=== PATIENT | male | born 1950 | race Caucasian/White ===

== ENCOUNTER 2017-04-25 08:34 | Outpatient (CLI) | payer MEDICARE ==
--- NOTE | 2017-04-25 11:19 | MRI ---
LUMBAR SPINE MRI WITHOUT IV CONTRAST: Date: 04/25/17 HISTORY: 67-year-old male with history of low back pain and bilateral radiculopathy. FINDINGS: Multiplanar, multisequence MRI examination of the lumbar spine was performed. There is very severe ge neralized disc desiccation changes and ligament and facet hypertrophic changes with extensive hypertr ophic disc osteophytosis and facet arthrosis. At T11-T12, evaluated only on sagittal sequences, there is diffuse disc osteophytosis with some facet arthrosis resulting in severe central spinal canal stenosis with some central cord compression, both dorsally and ventrally. There is also bilateral foraminal stenosis at this level. There are some mix ed, including some Type I end plate changes at this level anteriorly. At T12-L1, there is some moderate central canal stenosis and right foraminal stenosis. At L1-L2, there is mild to moderate central canal stenosis without significant foraminal stenosis. At L2-L3, there is severe disc bulging with moderate generalized central canal stenosis and moderate to severe bilateral foraminal stenosis. At L3-L4, there is very severe central spinal canal stenosis, lateral recess stenosis, and bilateral foraminal stenosis, worse on the left side. At L4-L5, there is very severe facet arthrosis with fluid within both facet joints and a right-sided posterior synovial cyst extending into the spinal canal, with overall severe central spinal canal pati nosis, bilateral recess stenosis, and bilateral foraminal stenosis. At L5-S1, there is severe generalized disc osteophytosis with left-sided lateral recess stenosis and severe bilateral foraminal stenosis. IMPRESSION: Very severe multilevel disc osteophytosis and facet arthrosis with variable severity up to very sever e central canal, lateral recess, and foraminal stenosis at multiple levels, most marked at L4-L5 and L3-L4, and T11-T12. Other findings as above. POS: ENRIQUE
== END 2017-04-25 08:35 | disposition home or self-care (01) ==
LOC: TBSIIMAG 08:34
PROVIDERS: ATTEND Family Medicine
DX: M54.16 Radiculopathy, lumbar region (principal); M25.78 Osteophyte, vertebrae; M48.061 Spinal stenosis, lumbar region without neurogenic claudication; M99.83 Other biomechanical lesions of lumbar region; M47.896 Other spondylosis, lumbar region
CPT/HCPCS: 72148

== ENCOUNTER 2017-05-30 07:42 | Outpatient (CLI) | payer MEDICARE ==
--- NOTE | 2017-05-30 09:57 | MRI ---
MRI THORACIC SPINE WITHOUT CONTRAST: Date: 05/30/17 HISTORY: Thoracic spine pain. Low back pain. Pain radiates down both lower extremities, for a few months. COMPARISON: None. TECHNIQUE: MRI thoracic spine is performed without intravenous Gadolinium administration. Multisequential, multi planar imaging is performed. FINDINGS: Intrinsic T1 and T2 hyperintensity at the T6 vertebral body level compatible with vertebral body nicola ngioma. No significant STIR hyperintensity to suggest vertebral body edema or ligamentous injury. No evidence of fracture. Overall, there is appropriate T1 marrow signal intensity of the thoracic verteb ra. Visualized mediastinal structures, lung parenchyma, and solid organs are unremarkable. The thoracic cord has an overall normal size. No cord expansion. Conus medullaris terminates beyond t he upper aspect of L1. There appears to be mass effect with at least mild to moderate central canal stenosis in the lower ce rvical spine, presumed to be at the C6-C7 level. Evaluation is incomplete on this examination. T6-T7: Small central disc bulge with mild central canal stenosis and deformity of the ventral cord, without T2 hyperintensity of the cord. T8-T9: Central/right paracentral disc bulge with deformity of the right aspect of the cord, without T2 hyper intensity of the cord. Mild to moderate central canal stenosis. T10-T11: Mild posterior element hypertrophy with resultant mild central canal stenosis. T11-T12: Generalized disc bulge and posterior element hypertrophy results in moderate central canal stenosis. T12-L1: Generalized disc bulge and posterior element hypertrophy results in mild central canal stenosis. IMPRESSION: 1. Degenerative changes of the thoracic spine as above. Greatest degree of central canal stenosis at T11-T12 level where there is moderate central canal stenosis. 2. Degenerative changes in the lower cervical spine, incompletely evaluated. POS: ENRIQUE
== END 2017-05-30 07:43 | disposition home or self-care (01) ==
LOC: TBSIIMAG 07:42
PROVIDERS: ATTEND Neurological Surgery
DX: M54.6 Pain in thoracic spine (principal); M47.894 Other spondylosis, thoracic region; M47.892 Other spondylosis, cervical region; M48.04 Spinal stenosis, thoracic region
CPT/HCPCS: 72146

== ENCOUNTER 2017-06-10 10:59 | Outpatient (CLI) | payer MEDICARE ==
[2017-06-10 14:13] LABS: Anion Gap 19 mmol/L (10-20); BUN (Urea Nitrogen) 25 mg/dL (8.4-25.7); Calc. Creatinine Clearance 0 mL/min (70-130); Calcium 10.3 mg/dL (7.8-10.44); Carbon Dioxide 23 mmol/L (23-31); Chloride 97 mmol/L (98-107); Estimated GFR-MDRD 37; Glucose 319 mg/dL (80-115); Potassium 4.3 mmol/L (3.5-5.1); Sodium 135 mmol/L (136-145)
--- NOTE | 2017-06-11 07:25 | EKG ---
Test Reason : Blood Pressure : / mmHG Vent. Rate : 070 BPM Atrial Rate : 070 BPM P-R Int : 200 ms QRS Dur : 150 ms QT Int : 418 ms P-R-T Axes : 012 -45 006 degrees QTc Int : 451 ms Normal sinus rhythm Left axis deviation Right bundle branch block Inferior infarct , age undetermined Abnormal ECG When compared with ECG of 19-SEP-2004 13:58, Right bundle branch block is now Present Inferior infarct is now Present Confirmed by DR. Karen MURO ([id number]) on 06/11/2017 7:24:43 AM Referred By: ORTEGA Confirmed By:DR. Karen MURO
== END 2017-06-10 11:00 | disposition home or self-care (01) ==
LOC: LABBT 10:59
PROVIDERS: ATTEND Neurological Surgery
DX: Z01.818 Encounter for other preprocedural examination (principal); M48.061 Spinal stenosis, lumbar region without neurogenic claudication
CPT/HCPCS: 80048; 93005; 93010

== ENCOUNTER 2017-06-17 06:45 | Day surgery (SDC) | payer MEDICARE ==
[2017-06-10 11:14] VITALS: BMI 41.7
--- NOTE | 2017-06-16 22:18 | HP ---
HISTORY OF PRESENT ILLNESS: Mr. Duque is a 67-year-old man presenting for evaluation of lumbar rad iculopathy as well as elements of neurogenic claudication. He has an MRI scan that reveals severe jessica mbar stenosis at L3-L4 as well as L4-L5 with associated synovial cyst. He has attempted to treat thi s conservatively with [id number] medications and some home exercises, none of which have really yielded him a great deal of relief. PAST MEDICAL HISTORY: Significant for hypertension, diabetes. CURRENT MEDICATIONS: Amlodipine, Bystolic, Janumet, and glipizide. ALLERGIES: No known drug allergies. PAST SURGICAL HISTORY: None specified. ASSESSMENT: Lumbar spinal stenosis. PLAN: Dr. Brandt met with the patient, reviewed imaging and advocated for an L3 through L5 decompress ion. He explained to the patient the risks, benefits, and alternatives to the procedure. The patien t expressed understanding and would like to move forward with surgery as discussed. I do believe the patient is mentally competent and capable of making medical decisions for himself and we will move f orward with surgery as planned. This is Humberto Javed PA-C dictating for Dr. Brandt.
[2017-06-17] MEDS ORDERED: Bupivacaine HCl 0.5%/Epinephrine 1:200,000/PF 30 ml Vial ONE (08:05)
[2017-06-17] MEDS ORDERED: Thrombin 5000 UNITS/5 ML VIAL ONE (08:05)
[2017-06-17] MEDS ORDERED: CEFAZOLIN/Water 2 GM/20 ML SYRINGE ONE ×2 (08:25→12:58)
[2017-06-17] MEDS ORDERED: Fentanyl 100 MCG/2 ML VIAL ONE ×2 (09:50→10:45)
[2017-06-17] MEDS ORDERED: Ondansetron HCl/PF 4 MG/2 ML Vial ONE ×2 (11:14→12:01)
[2017-06-17] MEDS ORDERED: HYDROmorphone 0.5 MG/0.5 ML SYRINGE ONE ×2 (11:19→11:21)
[2017-06-17] MEDS ORDERED: Morphine 4 MG/ML VIAL ONE (11:50)
[2017-06-17] MEDS ORDERED: PROPOFOL 200 MG/20 ML VIAL ONE (12:01)
[2017-06-17] MEDS ORDERED: Lidocaine 1% PF 5 ML VIAL ONE (12:01)
[2017-06-17] MEDS ORDERED: Glycopyrrolate 0.2 MG/ML 5 ML SYRINGE ONE (12:01)
[2017-06-17] MEDS ORDERED: Dexamethasone 20 MG/5 ML VIAL ONE (12:01)
--- NOTE | 2017-06-17 12:19 | OP ---
DATE OF PROCEDURE: 06/17/2017 SURGEON: Remi Brandt M.D. MEDICAL CONCIERGE: Humberto Javed PA-C INDICATION: Pain. DIAGNOSIS: Lumbar stenosis with neurogenic claudication. PROCEDURE PERFORMED: L3 through L5 lumbar decompression. ANESTHESIA: General. TECHNIQUE: The patient was brought into the operating room and placed under general anesthesia. He was flipped from a supine to a prone position on the operating room table. A linear incision was eddy nned spanning L3 to L5. After prepping and draping and after an appropriate operative pause, the inc ision was created. The soft tissues were swept away from midline. Self-retaining retractors were pl aced in the wound for optimal exposure. After confirming the appropriate level with a C-arm fluorosc opy, Adson rongeurs as well as 2, 3 and 4 mm Kerrisons as well as a high-speed cutting drill bit was used to perform a laminectomy which extended through all of L4, the inferior half of L3 and the super ior half of L5. Laminectomies were extended laterally to encompass the medial aspect of the facet maría elena ints. At the L4-L5 on the right, there was a synovial cyst present which was removed. In the end, t he central canal and lateral recesses were well decompressed. The wound was then irrigated. Hemosta sis was maintained throughout. The wound was then closed in anatomic layers and a pressure dressing was applied. There were no known procedural complications.
[2017-06-17] MEDS ORDERED: Ondansetron ODT 4 MG TAB ONE (13:27)
== END 2017-06-17 13:40 | disposition home or self-care (01) ==
LOC: SDC 06:45
PROVIDERS: ATTEND Neurological Surgery
PROC: 01NB0ZZ Release Lumbar Nerve, Open Approach (ICD-10-PCS; principal; 2017-06-17)
DX: M48.062 Spinal stenosis, lumbar region with neurogenic claudication (principal); I10 Essential (primary) hypertension; E11.9 Type 2 diabetes mellitus without complications
CPT/HCPCS: 76001; 96374; J0670; J1100; J1170; J2001; J2270; J2405; J2704; J3010; Q0162

== ENCOUNTER 2018-03-03 12:48 | Outpatient (CLI) | payer MEDICARE ==
--- NOTE | 2018-03-03 16:16 | RAD ---
CHEST TWO VIEW SERIES: INDICATIONS: Dyspnea. FINDINGS: The cardiac silhouette is mildly enlarged. There is mild prominence of the central pulmonary vascula ture. No effusion or pneumothorax. There is vascular calcification and osseous degenerative change. IMPRESSION: 1. No focal consolidation. 2. Mild prominence of the cardiac silhouette and pulmonary vasculature. 3. Correlate for fluid status. POS: [facility]
== END 2018-03-03 12:49 | disposition home or self-care (01) ==
LOC: RAD 12:48
PROVIDERS: ATTEND Internal Medicine Critical Care Medicine
DX: R06.00 Dyspnea, unspecified (principal)
CPT/HCPCS: 71046

== ENCOUNTER 2018-04-29 12:16 | Outpatient (CLI) | payer MEDICARE ==
--- NOTE | 2018-05-01 10:41 | PFT ---
PATIENT HISTORY: HEIGHT: 74 IN WEIGHT: 330 SMOKER: NEVER HOW LONG: NA PACKS PER DAY PRODUCTIVE COUGH: LUNG DISEASE: PHYSICIAN INTERPRETATION PFT data: FEV1 3.70 L 110% predicted, FVC 5.01 L 114% predicted. Residual volume and Total lung capacity are normal. DLCO was 36.99 which is 128% predicted which is likely an erroneous reading. The MVV is also normal. IMPRESSION: This is a normal study. Shank Inspector: JOSÉ MIGUEL Trench Pipe Layer Helper: JOSÉ MIGUEL MATTHEWS
== END 2018-04-29 12:17 | disposition home or self-care (01) ==
LOC: CP 12:16
PROVIDERS: ATTEND Internal Medicine Critical Care Medicine
DX: R06.00 Dyspnea, unspecified (principal)
CPT/HCPCS: 94060; 94727; 94729

== ENCOUNTER 2019-09-05 18:16 | Inpatient (IN) | payer MEDICARE, OTHER ==
[2019-09-05] MEDS ORDERED: Vancomycin 1 GM/200 ML BAG ONE (18:34)
[2019-09-05 19:06] LABS: #Eosinphils 0.1 thou/uL (0.0-0.7); #Lymphocytes 2.2 thou/uL (1.20-3.40); #Neutrophils 7.5 thou/uL (1.40-6.50); %Basophils 0.2 % (0.0-1.0); %Eosinophils 0.7 % (0.0-10.0); %Lymphocytes 20.2 % (21.0-51.0); %Monocytes 9.1 % (0.0-10.0); %Neutrophils 69.8 % (42.0-75.0); Hemoglobin 15.2 g/dL (14.0-18.0); Mean Corpuscular HGB CONC 31.2 g/dL (32.0-36.0); Mean Corpuscular Hemoglobin 28.7 pg (27.0-31.0); Mean Corpuscular Volume 92.2 fL (78.0-98.0); Mean Platelet Volume 9.1 fL (7.4-10.4); Platelet Count 209 thou/uL (130-400); RBC Distribution Width 11.8 % (11.5-14.5); Red Blood Cell (RBC) Count 5.28 mill/uL (4.70-6.10); White Blood Cell (WBC) Count 10.7 thou/uL (4.8-10.8)
[2019-09-05 19:26] LABS: ALT (SGPT) 17 U/L (8-55); AST (SGOT) 16 U/L (5-34); Alkaline Phosphatase 127 U/L (40-110); Anion Gap 19 mmol/L (10-20); BUN (Urea Nitrogen) 36 mg/dL (8.4-25.7); Bilirubin, Total 0.6 mg/dL (0.2-1.2); Calc. Creatinine Clearance 0 mL/min (70-130); Calcium 9.5 mg/dL (7.8-10.44); Carbon Dioxide 24 mmol/L (23-31); Chloride 93 mmol/L (98-107); Estimated GFR-MDRD 33; Globulin 3.6 g/dL (2.4-3.5); Glucose 377 mg/dL (80-115); Potassium 4.5 mmol/L (3.5-5.1); Protein, Total 7.6 g/dL (5.8-8.1); Sodium 131 mmol/L (136-145)
--- NOTE | 2019-09-05 19:35 | RAD ---
RIGHT TOES THREE VIEWS: 09/05/19 HISTORY: Trauma. Examination is centered over the second and third toes. There is some deformity to the tuft of the di stal phalanx of the third toe. There is soft tissue swelling. IMPRESSION: Tuft fracture third toe. POS: KLAUDIA
[2019-09-05] MEDS ORDERED: Guaifenesin DM 100-10/5 ML UDCUP PO PRN (19:54)
[2019-09-05] MEDS ORDERED: Ondansetron PF 4 MG/2 ML Vial IVP PRN (19:54)
[2019-09-05] MEDS ORDERED: Acetaminophen 650 MG Suppository PR PRN (19:54)
[2019-09-05] MEDS ORDERED: Ondansetron ODT 4 MG TAB PO PRN (19:54)
[2019-09-05] MEDS ORDERED: Acetaminophen 325 MG TAB PO PRN (19:54)
[2019-09-05] MEDS ORDERED: Calcium Carbonate 500 MG ChewTAB PO PRN (19:54)
[2019-09-05] MEDS ORDERED: HYDROcodone/Acetaminophen 5/325 mg Tablet PO PRN ×2 (19:54)
--- NOTE | 2019-09-05 20:17 | PDOC.HHP ---
Hospitalist HPI - History of Present Illness History of Present Illness: Case of an 69 y/o with pmhx of smoker, DM htn and hypercholesterolemia who comes to hospital due to infected third toe. patient refers he was on his usual state of health until almost a week ago when he kicked something. his toe began started getting swollen and red. he took some abx he had on his home amoxicillin 500, but toe continued to get worse, suppurating for which he came to seek medical assistance. patient denies any fever chills nausea and vomiting. patient has diabetic neuropathy and does not feel any pain Hospitalist ROS - Review of Systems All other systems reviewed; all pertinent +/- noted in HPI/Subj Hospitalist History - Past Surgical History Past Surgical History: reports: Total Knee Replacement - Family History Family History: reports: cerebrovascular accident, diabetes mellitus - Social History Smoking Status: Current every day smoker - Exam General Appearance: NAD, awake alert Eye: PERRL, anicteric sclera ENT: normocephalic atraumatic, no oropharyngeal lesions Neck: supple, symmetric, no JVD Heart: RRR, no murmur, no gallops Respiratory: CTAB, no wheezes, no rales Gastrointestinal: soft, non-tender, non-distended Extremities - other findings: R 3rd toe with erythema swollen suppurating, black eschar Skin: normal turgor, no lesions Neurological: cranial nerve grossly intact, normal sensation to touch Musculoskeletal: normal tone, normal strength, no muscle wasting Psychiatric: normal affect, normal behavior, A&O x 3 Hospitalist Results - Labs Result Diagrams: 09/05/19 18:47 09/05/19 18:47 Lab results: WBC 10.7 thou/uL (4.8-10.8) 09/05/19 18:47 Hgb 15.2 g/dL (14.0-18.0) 09/05/19 18:47 Hct 48.7 % (42.0-52.0) 09/05/19 18:47 MCV 92.2 fL (78.0-98.0) 09/05/19 18:47 Plt Count 209 thou/uL (130-400) 09/05/19 18:47 Neutrophils % 69.8 % (42.0-75.0) 09/05/19 18:47 ESR Westergren 63 mm/hr (Less than 20) 09/05/19 18:47 Sodium 131 mmol/L (136-145) L 09/05/19 18:47 Potassium 4.5 mmol/L (3.5-5.1) 09/05/19 18:47 Chloride 93 mmol/L (98-107) L 09/05/19 18:47 Carbon Dioxide 24 mmol/L (23-31) 09/05/19 18:47 BUN 36 mg/dL (8.4-25.7) H 09/05/19 18:47 Creatinine 2.01 mg/dL (0.7-1.3) H 09/05/19 18:47 Glucose 377 mg/dL (80-115) H 09/05/19 18:47 Lactic Acid 3.6 mmol/L (0.5-2.2) H 09/05/19 18:47 Calcium 9.5 mg/dL (7.8-10.44) 09/05/19 18:47 Total Bilirubin 0.6 mg/dL (0.2-1.2) 09/05/19 18:47 AST 16 U/L (5-34) 09/05/19 18:47 ALT 17 U/L (8-55) 09/05/19 18:47 Alkaline Phosphatase 127 U/L (40-110) H 09/05/19 18:47 C-Reactive Protein 5.18 mg/dL (= or < 0.5) H 09/05/19 18:47 Serum Total Protein 7.6 g/dL (5.8-8.1) 09/05/19 18:47 Albumin 4.0 g/dL (3.4-4.8) 09/05/19 18:47 - Radiology Interpretation Other Additional Comment: xr with broken toe, tissues swelling Hospitalist H&P A/P - Problem (1) Wet gangrene Code(s): I96 - GANGRENE, NOT ELSEWHERE CLASSIFIED Status: Acute (2) Diabetes Code(s): E11.9 - TYPE 2 DIABETES MELLITUS WITHOUT COMPLICATIONS Status: Acute (3) Hypertension Code(s): I10 - ESSENTIAL (PRIMARY) HYPERTENSION Status: Acute (4) Obese Code(s): E66.9 - OBESITY, UNSPECIFIED Status: Acute (5) Hypercholesterolemia Code(s): E78.00 - PURE HYPERCHOLESTEROLEMIA, UNSPECIFIED Status: Acute (6) LORRAINE (acute kidney injury) Code(s): N17.9 - ACUTE KIDNEY FAILURE, UNSPECIFIED Status: Acute - Plan Plan: 69y/o male with [place] pmhx who comes [facility] due to R 3rd toe with wet gangrene wet gangrene of R 3rd toe - xr concerning for OM - elevated crp - on vancomycin and cefepimen - LA at 3.6 f/u in 3 hrs - sepsis bundles started - surgery evaluation hyponatremia - likely hypo osmolar hypovolemic - starting ivfs - f/u bmp acute over chronic kidney injury - elevation of over .3 from previous labs - starting IVFs - f/u u/o and renal function dm - holding oral medication - acc and ss - long acting insulin - adjust as necessary htn - holding for now, restart w LA is normal
[2019-09-05] MEDS ORDERED: Piperacillin/Tazobactam 4.5 GM VIAL ONE (20:55)
[2019-09-05] MEDS ORDERED: Dextrose 50% Abboject 50 ML SYRINGE SLOW IVP PRN (21:06)
[2019-09-05] MEDS ORDERED: Dextrose 5% in Water 1,000 ML IV PRN (21:06)
[2019-09-05] MEDS: Cefepime 2 GM in Sodium Chloride 0.9% 100 ML IVPB SCH (22:13)
[2019-09-05] MEDS: Sodium Chloride 0.9% 1,000 ML IV SCH (22:13)
[2019-09-05 22:22] LABS: Lactic Acid 1.9 mmol/L (0.5-2.2)
[2019-09-05] MEDS ORDERED: Insulin Glargine 10 UNITS in Pre-Filled Syringe 1 EACH SC SCH (23:45)
[2019-09-06 00:01] VITALS: BMI 39.6
[2019-09-06] MEDS: Vancomycin 1 GM in Premix Bag 1 BAG IVPB SCH ×2 (03:50→18:30)
[2019-09-06] MEDS: HumaLOG 300 UNITS/3 ML VIAL SC PRN ×4 (05:23→22:51)
[2019-09-06] MEDS: Sodium Chloride 0.9% 1,000 ML IV SCH ×3 (05:24→15:05)
[2019-09-06 06:42] LABS: #Eosinphils 0.1 thou/uL (0.0-0.7); #Lymphocytes 1.5 thou/uL (1.20-3.40); #Monocytes 0.8 thou/uL (0.11-0.59); #Neutrophils 5.8 thou/uL (1.40-6.50); %Basophils 0.2 % (0.0-1.0); %Eosinophils 0.9 % (0.0-10.0); %Lymphocytes 18.2 % (21.0-51.0); %Monocytes 9.8 % (0.0-10.0); %Neutrophils 70.9 % (42.0-75.0); Mean Corpuscular HGB CONC 33.9 g/dL (32.0-36.0); Mean Corpuscular Hemoglobin 31.4 pg (27.0-31.0); Mean Corpuscular Volume 92.9 fL (78.0-98.0); Mean Platelet Volume 7.4 fL (7.4-10.4); Platelet Count 207 thou/uL (130-400); RBC Distribution Width 11.9 % (11.5-14.5); Red Blood Cell (RBC) Count 4.46 mill/uL (4.70-6.10); White Blood Cell (WBC) Count 8.1 thou/uL (4.8-10.8)
[2019-09-06 07:04] LABS: ALT (SGPT) 15 U/L (8-55); AST (SGOT) 13 U/L (5-34); Albumin 3.5 g/dL (3.4-4.8); Alkaline Phosphatase 103 U/L (40-110); Anion Gap 12 mmol/L (10-20); BUN (Urea Nitrogen) 24 mg/dL (8.4-25.7); Bilirubin, Total 0.5 mg/dL (0.2-1.2); Calc. Creatinine Clearance 74 mL/min (70-130); Calcium 9.2 mg/dL (7.8-10.44); Carbon Dioxide 26 mmol/L (23-31); Chloride 100 mmol/L (98-107); Estimated GFR-MDRD 36; Globulin 3.1 g/dL (2.4-3.5); Glucose 352 mg/dL (80-115); Potassium 4.7 mmol/L (3.5-5.1); Protein, Total 6.6 g/dL (5.8-8.1); Sodium 133 mmol/L (136-145)
[2019-09-06] MEDS: Enoxaparin Sodium 30 MG/0.3 ML SYRINGE SC SCH (08:56)
[2019-09-06] MEDS: Cefepime 2 GM in Sodium Chloride 0.9% 100 ML IVPB SCH ×2 (08:57→22:45)
[2019-09-06] MEDS ORDERED: Prevnar 13-Val Conj/PF 0.5 ML SYRINGE IM ONE (09:00)
[2019-09-06] MEDS ORDERED: PROPOFOL 200 MG/20 ML VIAL ONE (10:04)
[2019-09-06] MEDS ORDERED: Ondansetron PF 4 MG/2 ML Vial ONE (10:04)
[2019-09-06] MEDS ORDERED: Midazolam HCl 2 mg/2 ml Vial ONE ×2 (12:14→16:55)
[2019-09-06] MEDS ORDERED: Fentanyl 100 MCG/2 ML VIAL ONE ×2 (12:14→16:55)
--- NOTE | 2019-09-06 12:15 | PDOC.CONS ---
- Consultation CHIEF COMPLAINT: Right third toe pain HISTORY OF PRESENT ILLNESS: 69-year-old diabetic male presents with right third toe pain. Patient reports that he had kicked something approximately 1 week ago and injured his toe. He endorses paresthesias in his toes due to diabetes. Over the time course, he has increased swelling with erythema; now with purulent discharge. He was originally managed outpatient with antibiotics for 5 days, but this failed to improve his condition. He denies fever, chills, nausea, or vomiting. REVIEW OF SYSTEMS: General: Denies recent weight changes, fever, or chills. Eyes: Denies visual changes, pain, or irritation ENT: Denies changes in hearing, nasal discharge, or sore throat Cardiovascular: Denies chest pain, palpitations, shortness of breath, or edema. Respiratory: Denies cough, shortness of breath, or wheezing Gastrointestinal: Denies abdominal pain, nausea, or vomiting. Genitourinary: Denies frequent urination or dysuria Musculoskeletal: Positive per HPI Integumentary: Denies abnormal rashes, sores, or skin lesions Neurological: Denies numbness, tingling, or weakness. Psychiatric: Denies new onset anxiety or depression Endocrine: Denies temperature intolerances, polyuria, or excessive thirst Hematologic: Denies abnormal bruising or bleeding PAST MEDICAL HISTORY: Diabetes mellitus Hyperlipidemia Hypertension PAST SURGICAL HISTORY: Left knee replacement Back surgery FAMILY HISTORY: CVA Diabetes SOCIAL HISTORY Never smoker, denies illicit drug use, endorses occasional alcohol consumption. PHYSICAL EXAM: Vital Signs: HR 75 BP 137/69 T 97.6 RR 20 SpO2 [ ] General: Alert and oriented, no acute distress ENT: Sclera anicteric, pupils equal and reactive, mucous membranes moist Neck: No jugular venous distention, trachea midline Cardiovascular: Regular rate and rhythm Pulmonary: Clear to auscultation Abdominal: Soft, nondistended, nontender Genitourinary: Normal anatomy Rectal: Deferred Integument: No abnormal rashes or lesions Musculoskeletal: No gross deformities or edema, normal range of motion. Well- healed surgical incision left knee. Erythema, swelling, and purulent discharge from the tip of the right third toe with mild cellulitis extending to the metacarpophalangeal joint. LABORATORY: Laboratory analysis reviewed. Demonstrates a white blood cell count of 8.1 and a creatinine of 1.9 (reported to be chronically elevated by patient) IMAGING: X-ray right foot demonstrates tuft fracture of third toe ASSESSMENT: 69-year-old male with wet gangrene of the right third toe secondary to traumatic injury and diabetes mellitus. PLAN: Plan for right third toe amputation later today. The relative risks and benefits of this procedure were discussed in detail with the patient, specifically addressing the risk of wound complications and the need for additional procedures. Informed consent was obtained. Patient may be discharged home from a surgical standpoint later, if deemed appropriate by primary service.
[2019-09-06 12:25] LABS: SARS-CoV-2 MS2 Positive; SARS-CoV-2 N Gene Negative; SARS-CoV-2 S Gene Negative; SARS-CoV-2 by NAA Not Detected (NotDetected); SARS-CoV-2 orf1ab Negative
--- NOTE | 2019-09-06 12:25 | PDOC.HOSPP ---
- Subjective Encounter Date: 09/06/19 Encounter Time: 12:23 Subjective: surgery today to amputate R 3rd and 4th toe - Objective Vital Signs & Weight: Vital Signs (12 hours) Temp Pulse Resp BP Pulse Ox 09/06/19 11:00 97.5 F L 75 20 145/82 H 96 09/06/19 07:25 97.6 F 75 20 137/69 97 09/06/19 03:45 97.1 F L 68 18 140/66 95 Weight Weight 308 lb 8 oz I&O: 09/05/19 09/06/19 09/07/19 06:59 06:59 06:59 Intake Total 900 Balance 900 Result Diagrams: 09/06/19 06:19 09/06/19 06:19 Additional Labs: Accuchecks 09/06/19 09/06/19 09/05/19 05:04 00:12 22:27 POC Glucose 299 H 341 H 286 H Hospitalist ROS - Medication Medications: Active Medications Generic Name Dose Route Start Last Admin Trade Name Freq PRN Reason Stop Dose Admin Enoxaparin Sodium 30 mg 09/06/19 09:00 09/06/19 08:56 Lovenox SC 30 mg 0900 DIANELYS Administration Cefepime HCl 2 gm/ Sodium 100 mls @ 200 mls/hr 09/05/19 21:00 09/06/19 08:57 Chloride IVPB 100 mls Q12HR DIANELYS Administration Sodium Chloride 1,000 mls @ 100 mls/hr 09/05/19 20:00 09/06/19 12:18 Normal Saline 0.9% IV 1,000 mls .Q10H DIANELYS Administration Vancomycin HCl 1 gm/ Device 200 mls @ 200 mls/hr 09/06/19 04:00 09/06/19 03: 50 IVPB 200 mls 0400,1600 DIANELYS Administration Insulin Human Lispro 0 units 09/05/19 21:06 09/06/19 05:23 Humalog SC 6 unit .MODERATE SLIDING SC PRN Administration Moderate Correctional Scale Sodium Chloride 10 ml 09/05/19 21:00 09/06/19 08:57 Flush - Normal Saline IVF 10 ml Q12HR DIANELYS Administration - Exam General Appearance: awake alert Neck: no JVD Heart: RRR, no murmur Respiratory: CTAB Gastrointestinal: soft, non-tender, normal bowel sounds Extremities - other findings: gangrene R 3rd/4th toes Hosp A/P (1) Gangrene associated with type 2 diabetes mellitus Code(s): E11.52 - TYPE 2 DIABETES W DIABETIC PERIPHERAL ANGIOPATHY W GANGRENE Status: Acute (2) LORRAINE (acute kidney injury) Code(s): N17.9 - ACUTE KIDNEY FAILURE, UNSPECIFIED Status: Acute (3) Diabetes Code(s): E11.9 - TYPE 2 DIABETES MELLITUS WITHOUT COMPLICATIONS Status: Acute Qualifiers: Diabetes mellitus type: type 2 Diabetes mellitus long-term insulin use: without tank terminal gauger use Diabetes mellitus complication status: with kidney complications Diabetes mellitus complication detail: with other kidney complication Qualified Code(s): E11.29 - Type 2 diabetes mellitus with other diabetic kidney complication (4) Hypercholesterolemia Code(s): E78.00 - PURE HYPERCHOLESTEROLEMIA, UNSPECIFIED Status: Chronic (5) Hypertension Code(s): I10 - ESSENTIAL (PRIMARY) HYPERTENSION Status: Chronic Qualifiers: Hypertension type: essential hypertension Qualified Code(s): I10 - Essential (primary) hypertension - Plan surgery today serial BMP iv fluids selected home meds- hold ARB/metformin secondary to acute renal failure accu/ss/ etc
[2019-09-06] MEDS ORDERED: Ondansetron HCl/PF 4 MG/2 ML Vial IVP PRN ×2 (12:53→16:55)
[2019-09-06] MEDS ORDERED: Vancomycin 1 GM/200 ML BAG ONE (16:13)
[2019-09-06] MEDS ORDERED: Promethazine HCl 25 MG/ML VIAL SLOW IVP PRN (16:55)
[2019-09-06] MEDS ORDERED: Promethazine HCl 25 MG/ML VIAL IM PRN (16:55)
[2019-09-06] MEDS ORDERED: Atorvastatin Calcium 20 MG TAB PO SCH (21:00)
[2019-09-06] MEDS ORDERED: Insulin Glargine 10 UNITS in Pre-Filled Syringe 1 EACH SC SCH (21:00)
--- NOTE | 2019-09-06 21:24 | PDOC.OP ---
Operative Note - Operative Note Operative Note: DATE OF SURGERY: September 06, 2019 SURGEON: Maldonado Hoffman MD PREOPERATIVE DIAGNOSIS: Wet gangrene, right third toe POSTOPERATIVE DIAGNOSIS: Wet gangrene, right third toe PROCEDURE: Amputation, right third toe INDICATIONS: 69-year-old diabetic with post traumatic injury of his right third toe. This is developed into wet gangrene. PROCEDURE IN DETAIL: The patient was brought to the operating room after receiving a right ankle block. He was prepared and draped in the usual fashion. Prior to beginning the procedure, a complete timeout was performed with all members of the operative team being present in agreement. An incision was made around the base of the toe. Given the size of the patient's toes, this had to be extended slightly over the metatarsal head. The soft tissue was divided with electrocautery until the phalanges was encountered. A periosteal elevator was used to clear the bone of the remaining soft tissue until the metacarpophalangeal joint was encountered. This was divided sharply, and the toe removed. The resultant wound bed was irrigated and hemostasis achieved. The soft tissue was closed with interrupted 2-0 Vicryl suture. The skin was closed with 3-0 nylon suture in interrupted fashion. At the conclusion of the case, all sponge and instrument counts were correct. ESTIMATED BLOOD LOSS: Minimal COMPLICATIONS: None INTRAOPERATIVE BLOOD TRANSFUSIONS: None GRAFTS / IMPLANTS: None SPECIMENS: Right third toe DISPOSITION: The patient was transported to the postoperative recovery unit in good conditions to be Abdullahi back to his room when criteria met.
[2019-09-07] MEDS: Vancomycin 1 GM in Premix Bag 1 BAG IVPB SCH (04:30)
[2019-09-07] MEDS: Sodium Chloride 0.9% 1,000 ML IV SCH (04:39)
[2019-09-07 04:45] LABS: Vancomycin, Trough 11.2 ug/mL
[2019-09-07 04:46] LABS: Anion Gap 12 mmol/L (10-20); BUN (Urea Nitrogen) 17 mg/dL (8.4-25.7); Calc. Creatinine Clearance 87 mL/min (70-130); Carbon Dioxide 26 mmol/L (23-31); Chloride 101 mmol/L (98-107); Estimated GFR-MDRD 44; Potassium 4.4 mmol/L (3.5-5.1); Sodium 135 mmol/L (136-145)
[2019-09-07 04:47] LABS: Calcium 8.8 mg/dL (7.8-10.44); Glucose 249 mg/dL (80-115)
[2019-09-07] MEDS ORDERED: Vancomycin HCl 1.25 GM in Sodium Chloride 0.9% 250 ML 250 ML IVPB SCH (05:00)
[2019-09-07] MEDS: HumaLOG 300 UNITS/3 ML VIAL SC PRN (05:39)
[2019-09-07 07:55] VITALS: BP 141/75; TEMP 96.9
[2019-09-07] MEDS: Cefepime 2 GM in Sodium Chloride 0.9% 100 ML IVPB SCH (08:40)
[2019-09-07] MEDS: Enoxaparin Sodium 30 MG/0.3 ML SYRINGE SC SCH (08:52)
[2019-09-07] MEDS ORDERED: Aspirin Chewable 81 MG TAB PO SCH (09:00)
[2019-09-07] MEDS ORDERED: Nebivolol HCl 5 MG TAB PO SCH (09:00)
[2019-09-07] MEDS ORDERED: Non-Formulary Item 1 EACH (Valsartan [Valsartan] 1 TAB) PO SCH (09:00)
[2019-09-07] MEDS ORDERED: Amlodipine 5 MG TAB PO SCH (09:00)
--- NOTE | 2019-09-07 10:27 | DIS ---
DATE OF ADMISSION: 09/05/2019 DATE OF DISCHARGE: 09/07/2019 DISCHARGE DIAGNOSES: 1. Right 3rd toe wet gangrene, status post amputation. 2. Diabetes mellitus, type 2 with peripheral neuropathy and poorly controlled glucose. 3. Acute kidney injury on chronic kidney disease, stage 3. 4. Hyponatremia secondary to hyperglycemia, improved. 5. Hypertension, stable. CONSULTATIONS: Dr. Hoffman with General Surgery Service. PERTINENT LABORATORY AND X-RAY FINDINGS: Sodium ranged between 131 to 135, creatinine ranged between 1.58 to 2.01, estimated GFR ranged between 33 to 44. Lactic acid level ranged between 1.9 to 3.6. ESR 63. CRP 5.18. COVID-19 PCR not detected on 09/05/2019. Blood cultures x2 showed 1/2 positive for coagulase-negative Staphylococcus with likely skin contaminant. Three views of the right 3rd toe showed a tuft fracture of the 3rd toe. HOSPITAL COURSE: The patient was admitted to the medical floor after presenting with right 3rd toe drainage, pain and discoloration. The patient underwent general evaluation including plain x-ray evaluation showing a tuft fracture of the right 3rd toe. The patient was also noted with wet gangrene of the toe after initially being treated on an outpatient basis with amoxicillin and topical Neosporin. The patient was evaluated by the General Surgery Service, undergoing amputation of the right 3rd toe on 09/06/2019 without complication. Postoperatively, the patient had minimal pain and was ambulatory in his room without assistance or difficulty. The patient did receive empiric antibiotic coverage with vancomycin and cefepime. However, antibiotic coverage will be discontinued postoperatively. The patient was also treated for mild acute kidney injury with IV fluids with overall improvement in renal function by the time of discharge. Overall, the patient did remain clinically stable during the hospital course, tolerating regular oral intake with stable vital signs. I have examined the patient at the time of discharge and discussed followup instructions. The patient ready for discharge on 09/07/2019. DISCHARGE MEDICATIONS: 1. Amlodipine 5 mg p.o. daily. 2. Enteric-coated aspirin 81 mg p.o. daily. 3. Lipitor 20 mg p.o. daily. 4. Trulicity 1 unit subcutaneously q.7 days. 5. Glipizide 5 mg p.o. daily. 6. Hydrochlorothiazide 12.5 mg p.o. daily. 7. Bystolic 10 mg p.o. daily. 8. Janumet mg one tablet p.o. b.i.d. 9. Valsartan 160 mg p.o. daily. FOLLOWUP: The patient may follow up with his primary care provider, Dr. Arthur Lowry, within 7 days of discharge. The patient will follow up with Dr. Maldonado Hoffman, with General Surgery Service. CONDITION ON DISCHARGE: Stable. ACTIVITY: Ad-mario. Ambulate with postoperative shoe. SPECIAL INSTRUCTIONS: Wound care instructions per General Surgery Service. DIET: ADA and heart healthy. CODE STATUS: Full. DISPOSITION: Home on 09/07/2019. TIME SPENT: Total time preparing and coordinating discharge, 32 minutes. Job ID: [id number]
--- NOTE | 2019-09-07 11:07 | PDOC.BPN ---
- Brief Progress Note Doing well s/p right third toe amputation. Postoperative pain well controlled with current regimen. Tolerating regular diet, without nausea or vomiting. Endorses flatus and bowel movements. Ambulating independently. EXAM: VS: T 96.9 HR 76 BP 141/75 RR 20 General: Alert and oriented, no acute distress, resting comfortably Pulmonary: No dyspnea or difficulty breathing Abdomen: Soft, non-distended, nontender CV: Regular rate and rhythm, palpable distal pulses Extremities: No edema. Right foot erythema significantly improved. Incision clean. 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 Patient instructed on daily dressing changes Orthopedic shoe ordered Patient counseled to follow-up with his primary care provider to address his elevated creatinine and poorly controlled diabetes Follow-up with Dr. Hoffman 2 weeks. Call [phone] for an appointment.
== END 2019-09-07 12:11 | disposition home or self-care (01) | DRG 256 ==
LOC: ERS 18:16 → T4-B 20:00
PROVIDERS: ADMIT Internal Medicine; ATTEND Internal Medicine
PROC: 0Y6T0Z3 Detachment at Right 3rd Toe, Low, Open Approach (ICD-10-PCS; principal; 2019-09-06)
PROC: 3E0234Z Introduction of Serum, Toxoid and Vaccine into Muscle, Percutaneous Approach (ICD-10-PCS; 2019-09-06)
DX: E11.52 Type 2 diabetes mellitus with diabetic peripheral angiopathy with gangrene (principal); I96 Gangrene, not elsewhere classified; N17.9 Acute kidney failure, unspecified; E87.1 Hypo-osmolality and hyponatremia; Z11.59 Encounter for screening for other viral diseases; E11.65 Type 2 diabetes mellitus with hyperglycemia; E11.42 Type 2 diabetes mellitus with diabetic polyneuropathy; E11.22 Type 2 diabetes mellitus with diabetic chronic kidney disease; N18.3 Chronic kidney disease, stage 3 (moderate); I12.9 Hypertensive chronic kidney disease with stage 1 through stage 4 chronic kidney disease, or unspecified chronic kidney disease; E78.00 Pure hypercholesterolemia, unspecified; F17.210 Nicotine dependence, cigarettes, uncomplicated; E66.9 Obesity, unspecified; E78.5 Hyperlipidemia, unspecified; Z96.652 Presence of left artificial knee joint; S92.531A Displaced fracture of distal phalanx of right lesser toe(s), initial encounter for closed fracture; X58.XXXA Exposure to other specified factors, initial encounter; Z79.899 Other long term (current) drug therapy; Z68.39 Body mass index [BMI] 39.0-39.9, adult; Z79.82 Long term (current) use of aspirin; Z79.84 Long term (current) use of oral hypoglycemic drugs; Z23 Encounter for immunization
CPT/HCPCS: 36415; 36416; 80048; 80053; 80202; 83605; 85025; 85652; 86140; 87040; 87149; 87635; 88305; 90471; 90670; 96361; 96365; 96375; G0009; J0692; J1650; J1815; J2250; J2405; J2543; J2704; J3010; J3370; J3490; U0003

== ENCOUNTER 2022-04-16 12:04 | Outpatient (CLI) | payer MEDICARE | END 2022-04-16 12:05 | disposition home or self-care (01) | LOC: BICULT 12:04 | PROVIDERS: ATTEND Internal Medicine Nephrology | DX: N18.30 Chronic kidney disease, stage 3 unspecified (principal) | CPT/HCPCS: 76770 ==